=== PATIENT | female | born 1975 | race Caucasian/White ===

== ENCOUNTER 2020-04-25 13:22 | Outpatient (CLI) | payer MEDICAID, SELFPAY ==
[2020-04-25] MEDS: iohexol 300 mg/mL 100 mL Btl IV (13:45)
--- NOTE | 2020-04-25 14:30 | CT_ITS ---
WS: [id number] CT ABDOMEN PELVIS TECHNIQUE: Contrast-enhanced CT of the abdomen and pelvis with coronal and sagittal reformatted image s. CLINICAL INFORMATION: left ovarian COMPARISON: None. DLP: 269.[address] scans at [facility] use at least one of these dose optimization techniques: automat ed exposure control; mA and/or kV adjustment per patient size (includes targeted exams where dose is matched to clinical indication); or iterative reconstruction. FINDINGS:Heterogeneous physiologic uterine enhancement is normal for a patient this age. Peripheral e nhancing left adnexal lesion measuring 4.1 x 3.1 x 4.1 CM nonspecific but may represent hemorrhagic c yst. Recommend further evaluation with ultrasound. Small amount of adjacent fluid in the left adnexa. Small amount of free fluid in the cul-de-sac. Fluid in the endometrial canal. Normal liver. Normal portal vein and splenic vein. Lung bases are well aerated. Gallbladder is contra cted. Adrenal gland is normal. Normal renal parenchymal enhancement. No hydronephrosis. Normal GE veronika ction. Visualized pancreas is normal. Normal common bile duct. Normal caliber abdominal aorta. No abdominal or pelvic lymphadenopathy. No inguinal lymphadenopathy. Normal lumbar spine. CT/CT abdomen pelvis w con* [id number] IMPRESSION: 1. Peripheral enhancing left adnexal ovarian cystic lesion measuring 4.1 x 3.0 cm may represent hemorrhagic cyst. Recommend further evaluation with ultrasoun d. 2. Small amount of surrounding free fluid left adnexa and fluid in the cul-de- sac. 3. Normal physiologic uterine enhancement with fluid in the endometrial canal. 4. Normal liver and spleen. 5. Normal renal parenchymal enhancement. No hydronephrosis. 6. Normal caliber abdominal aorta. 7. No other significant findings.
== END 2020-04-25 13:23 | disposition home or self-care (01) ==
LOC: RAD 13:26
PROVIDERS: Visit Provider Nurse Practitioner Family
DX: N83.202 Unspecified ovarian cyst, left side (principal)
CPT/HCPCS: 74177

== ENCOUNTER → 2020-05-14 15:44 | Outpatient (BNVA) | payer MEDICAID, SELFPAY | PROVIDERS: Visit Provider Obstetrics & Gynecology | DX: Z12.4 Encounter for screening for malignant neoplasm of cervix; N83.8 Other noninflammatory disorders of ovary, fallopian tube and broad ligament | CPT/HCPCS: 88175 ==

== ENCOUNTER → 2020-05-21 11:05 | Outpatient (BNVA) | payer MEDICAID, SELFPAY | PROVIDERS: Visit Provider Obstetrics & Gynecology | DX: N83.8 Other noninflammatory disorders of ovary, fallopian tube and broad ligament (principal); R19.00 Intra-abdominal and pelvic swelling, mass and lump, unspecified site | CPT/HCPCS: 83001 ==

== ENCOUNTER 2020-11-19 09:17 | Emergency (ER) | payer MEDICAID, SELFPAY ==
[2020-11-19] VITALS (9 sets, daily range): BP systolic 94–132; BP diastolic 64–96; PULSE 72–93; RESP 14–28; TEMP 36.4; O2SAT 92–100; BMI 16.7
--- NOTE | 2020-11-19 09:23 | XR_ITS ---
WS: [id number] PORTABLE CHEST HISTORY: dyspnea/cough COMPARISON: None available. Single lead defibrillator to the RIGHT subclavian vein. Marked hyperinflation of the lungs. No mass or nodule. No pneumonia. No pleural effusion or pneumotho rax. Cardiac size: Normal. Mediastinum/Aorta: Normal mediastinum. No osseous abnormality seen. XR/XR chest 1V portable [id number] IMPRESSION: Marked hyperinflation otherwise negative.
--- NOTE | 2020-11-19 09:23 | CT_ITS ---
WS: [id number] CT ABDOMEN AND PELVIS WITH CONTRAST HISTORY: Abdominal pain with nausea. History of lymphoma. TECHNIQUE: Imaging performed of the abdomen and pelvis with IV contrast. Single phase imaging of the abdomen. Coronal and sagittal reformats are submitted. All CT scans at [facility] use at least one of these dose optimization techniques: automated exposure control; mA and/or kV adjustment per patient size (includes targeted exams where dose is matched to clinical indication); or iterativ e reconstruction. IV CONTRAST: Omnipaque 300; 95 mL IV. Oral contrast: No DLP: 756.22 mGy.cm COMPARISON: 04/25/2020 Lower thorax: Chronic emphysema. Heart size is normal. There is a defibrillator present causing some artifact through the anterior mediastinum. Small hiatal hernia. Liver/biliary system: Normal size with no intrahepatic dilatation. Gallbladder: Normal. No gallstones or wall thickening. No pericholecystic fluid. Pancreas: Small caliber pancreas. Common bile duct at the pancreatic head is normal size. There is a calcification in the pancreatic head which may be from prior episodes of pancreatitis. Spleen: Normal. Adrenal glands: Normal. Right kidney: Normal. Left kidney: Normal. Aorta: Normal. Lymphadenopathy: None. Free fluid: None. GI tract: No obstructive pattern. There is mild haziness involving the colon, greatest involving the ascending and descending colon. Very mild increased amount of edema within the wall. The appendix is only partially visualized and normal. No GI tract obstruction. Moderate fecal retention in the distal colon. Abdominal wall: Unremarkable abdominal wall. No hernia. Pelvis: Normal size slightly retroflexed uterus. Small bilateral ovarian cysts. No free fluid or aminta opathy in the pelvis. Previously described LEFT ovarian cyst is not longer present. Bones: Several lucencies are noted in the proximal LEFT femur which are present on the prior study wi th no progression. CT/CT abdomen pelvis w con* [id number] IMPRESSION: 1. No appendicitis. 2. Mild constipation. 3. No adenopathy. 4. Mild diffuse colitis. May be infectious. No ascites.
--- NOTE | 2020-11-19 09:35 | ED_ITS ---
HPI - Nausea/Vomiting/Diarrhea General: Chief complaint: Nausea/Vomiting/Diarrhea Stated complaint: n/v Time Seen by Provider: 11/19/20 09:17 History of Present Illness: HPI Narrative: 45-year-old female presents emergency room via EMS complaining of abdominal discomfort was persistent nausea and vomiting. Initially she told EMS that been going on for 3 to 4 days they had had contact with her yesterday evidently. Called back again today now she is telling us the ER its been going on for 4 hours. She admits to regular use of marijuana she denies use of any other medications. Clinically she has the appearance of being under the influence at this time. She cannot localize the pain she denies fever denies dysuria urgency or frequency. MD elicited complaint: nausea, vomiting and abdominal pain Onset (ago): day(s) (3-4) Associated nausea: Yes Associated abdominal pain: Yes Location of pain: Diffuse Pain consistency: constant Severity: severe Quality: cramping Exacerbating factors: none Relieving factors: none Associated symtoms: Reports anxiety and nausea; Denies altered mental status, bloating, change in vision, chest pain, cough, diaphoresis, decreased urine output, dizziness, dysuria, epistaxis, fatigue, fecal incontinence, fevers/chills, headache(s), anorexia, malaise, myalgias, nu mbness, palpitations, rash, short of breath, syncope, tenesmus, tinnitus or weakness Treatment prior to arrival: none Review of Systems Const: Denies: malaise or diaphoresis Eyes: Denies: change in vision ENMT: Denies: epistaxis Card: Denies: chest pain or syncope Resp: Denies: dyspnea, productive cough or non-productive cough GI: Reports: nausea; Denies: bloating or fecal incontinence : Denies: dysuria Skin/Breast: Denies: rash or pruritus Neuro: Denies: headache(s) or dizziness Psych: Reports: anxiety PFSH ED PFSH: Medical History (Updated 11/19/20 @ 16:00 by Harvey Wong DO) Cardiac defibrillator in place Cardiomyopathy due to cirrhosis of liver Chronic back pain History of ETOH abuse Hx of ovarian cyst Pelvic mass Surgical History Hx of section Hx of tubal ligation Family History Father , Killed beat to Family history of premature coronary artery disease Mother Diabetes Hypertension Stroke Thyroid disorder Brother Thyroid disorder Sister Thyroid disorder Denies family history of Colon cancer Ovarian cancer Clotting disorder Hyperlipidemia Breast cancer Anesthesia complication Bleeding disorder Uterine cancer Social History Smoking and tobacco status: light tobacco smoker cigarettes Alcohol intake: current Alcohol intake frequency: few times a month Alcohol type: hard liquor Female Reproductive History: Date of last menstrual period: 03/31/20 Para: 4 Spontaneous abortions: Yes Physical Exam Const: COMMON NORMALS: no acute distress EXAM LIMITATIONS: no altered mental status GENERAL APPEARANCE: cooperative and comfortable ORIENTATION/CONSCIOUSNESS: Yes awake, Yes oriented to person, Yes oriented to place and Yes oriented to time HENMT: COMMON NORMALS: normocephalic, atraumatic and hearing grossly normal bilaterally HEAD & SCALP: normocephalic and atraumatic Neck/C-Spine: COMMON NORMALS: no JVD Resp: COMMON NORMALS: normal respiratory effort, No retractions, No use of accessory muscles and clear to auscultation bilaterally AUSCULTATION: clear to auscultation bilaterally Cardio: COMMON NORMALS: no JVD, regular rate, regular rhythm and No murmurs present (Cardio) RATE: regular rate RHYTHM: regular rhythm GI: COMMON NORMALS: Soft to palpation and No hepatosplenomegaly present AUSCULTATION: Yes normoactive bowel sounds PALPATION: Yes Soft to palpation, No Tenderness to palpation present (GI), No Guarding due to palpation present (GI) and Yes No hepatosplenomegaly present Extremity: COMMON NORMALS: normal to inspection, capillary refill normal, no clubbing, cyanosis or edema, no calf tenderness and no pedal edema Neuro: SENSORIUM/ORIENTATION: Yes oriented to person, Yes oriented to place and Yes oriented to time Skin: COMMON NORMALS: no rashes or lesions noted GENERAL SKIN EXAM: no rashes or lesions noted Course Vital Signs: Vital signs: Vital Signs Temperature 97.6 F 11/19/20 09:19 Pulse Rate 74 11/19/20 16:15 Respiratory Rate 19 H 11/19/20 16:15 Blood Pressure 104/65 11/19/20 16:15 Pulse Oximetry 96 11/19/20 16:15 MDM - Nausea/Vomiting/Diarrhea MDM Narrative: Medical decision making narrative: Prolonged ER course for IV fluids and antiemetics. Patient has improved we will go ahead and discharge her home encourage her to avoid marijuana products. Patient given Reglan to use as needed at home Lab Data: Labs: Lab Results 11/19/20 11/19/20 11/19/20 Range/Units 10:05 10:05 10:05 WBC 7.9 (4.0-10.0) 10^3/ uL RBC 3.77 L (4.1-5.3) 10^6/u L Hgb 11.4 L (11.5-15.3) g/dL Hct 34.0 L (37.0-47.0) % MCV 90.2 (81-99) fL MCH 30.2 (28.0-34.0) pg MCHC 33.5 (30.0-36.0) g/dL RDW 14.5 (12.1-15.1) % Plt Count 278 (130-400) 10^3/c mm MPV 9.7 (7.4-10.4) fL Neut % (Auto) 80.2 % Lymph % (Auto) 15.4 % Pershing % (Auto) 3.3 % Eos % (Auto) 0.1 % Baso % (Auto) 0.6 % Neut # (Auto) 6.35 (1.8-7.7) 10^3/u L Lymph # (Auto) 1.2 (0.8-4.8) 10^3/u L Pershing # (Auto) 0.3 (0.2-0.9) 10^3/u L Eos # (Auto) 0.0 (0.0-0.8) 10^3/u L Baso # (Auto) 0.1 (0.0-0.1) 10^3/u L Nucleated RBC % (a uto) 0 % Nucleated RBCs # 0.0 /100WBC Specimen Type Sample Site ABG pH (7.35-7.45) ABG pCO2 (35-45) mmHg ABG pO2 (80.0-100.0) mmH g ABG HCO3 (22-26) mmol/L ABG O2 Saturation ABG Base Excess (-2.0-2.0) mmol/ L Ryley Test A-a O2 Gradient (5-10) mmHg Hematocrit (37-47) % Hgb O2 Saturation (95-100) % Carboxyhemoglobin (0.4-20.1) %THgb Methemoglobin (0.4-1.5) % Total Hemoglobin (12-16) g/dL Ionized Calcium (1.1-1.4) mmol/L O2 Delivery Device FiO2 % Device Repair Technician ID Sodium 137 (136-145) mmol/L Potassium 3.3 L (3.5-5.1) mmol/L Chloride 100 (98-107) mmol/L Carbon Dioxide 22 (22-29) mmol/L Anion Gap 18.3 (5-19) BUN 10 (6-20) mg/dL Creatinine 0.5 (0.5-0.9) mg/dL GFR Calculation 134.7 H (90-130) mL/min Glucose 109 (65-115) mg/dL Calculated Osmolal ity 284 L (285-295) mOsm/k g Lactic Acid 4.0 H (0.5-2.2) mmol/L Lactic Acid (Sepsi s) (0.5-2.2) mmol/L Calcium 8.6 (8.5-10.5) mg/dL Total Bilirubin 0.2 (0.15-1.2) mg/dL AST 19 (0-32) U/L ALT 13 (0-33) U/L Alkaline Phosphata se 50 (35-105) IU/L Creatine Kinase 77 (26-192) U/L Total Protein 7.3 (6.6-8.7) g/dL Albumin 4.4 (3.5-5.2) g/dL Globulin 2.9 (1.3-4.6) g/dL Lipase 7 L (13-60) U/L Urine Color (Yellow) Urine Appearance (CLEAR) Urine pH (5-7) Ur Specific Gravit y (1.005-1.030) Urine Protein (Negative) Urine Glucose (UA) (Normal) Urine Ketones (Negative) Urine Blood (Negative) Urine Nitrate (Negative) Urine Bilirubin (Negative) Prot Sulfosalicyli c Acd (Negative) Urine Urobilinogen (Negative) mg/dL Ur Leukocyte Breonna ase (Negative) Urine RBC (0-2) /hpf Urine WBC (0-5) /hpf Ur Squamous Epith Cells (0-5) /hpf Amorphous Sediment Urine Bacteria (NONE) /hpf 11/19/20 11/19/20 11/19/20 Range/Units 10:05 10:07 13:45 WBC (4.0-10.0) 10^3/ uL RBC (4.1-5.3) 10^6/u L Hgb (11.5-15.3) g/dL Hct (37.0-47.0) % MCV (81-99) fL MCH (28.0-34.0) pg MCHC (30.0-36.0) g/dL RDW (12.1-15.1) % Plt Count (130-400) 10^3/c mm MPV (7.4-10.4) fL Neut % (Auto) % Lymph % (Auto) % Pershing % (Auto) % Eos % (Auto) % Baso % (Auto) % Neut # (Auto) (1.8-7.7) 10^3/u L Lymph # (Auto) (0.8-4.8) 10^3/u L Pershing # (Auto) (0.2-0.9) 10^3/u L Eos # (Auto) (0.0-0.8) 10^3/u L Baso # (Auto) (0.0-0.1) 10^3/u L Nucleated RBC % (a uto) % Nucleated RBCs # /100WBC Specimen Type Arterial Sample Site Brachial, right ABG pH 7.36 (7.35-7.45) ABG pCO2 39.2 (35-45) mmHg ABG pO2 63.5 L (80.0-100.0) mmH g ABG HCO3 22.3 (22-26) mmol/L ABG O2 Saturation 89.9 ABG Base Excess -2.8 L (-2.0-2.0) mmol/ L Ryley Test Pos A-a O2 Gradient 5.0 (5-10) mmHg Hematocrit 38.0 (37-47) % Hgb O2 Saturation 87.4 L (95-100) % Carboxyhemoglobin 1.9 (0.4-20.1) %THgb Methemoglobin 0.8 (0.4-1.5) % Total Hemoglobin 12.4 (12-16) g/dL Ionized Calcium 1.2 (1.1-1.4) mmol/L O2 Delivery Device Room air FiO2 21.0 % Device Repair Technician ID [place] Sodium 143.0 (136-145) mmol/L Potassium 3.0 L (3.5-5.1) mmol/L Chloride (98-107) mmol/L Carbon Dioxide (22-29) mmol/L Anion Gap (5-19) BUN (6-20) mg/dL Creatinine (0.5-0.9) mg/dL GFR Calculation (90-130) mL/min Glucose 101.0 (65-115) mg/dL Calculated Osmolal ity (285-295) mOsm/k g Lactic Acid (0.5-2.2) mmol/L Lactic Acid (Sepsi s) 2.9 H (0.5-2.2) mmol/L Calcium (8.5-10.5) mg/dL Total Bilirubin (0.15-1.2) mg/dL AST (0-32) U/L ALT (0-33) U/L Alkaline Phosphata se (35-105) IU/L Creatine Kinase (26-192) U/L Total Protein (6.6-8.7) g/dL Albumin (3.5-5.2) g/dL Globulin (1.3-4.6) g/dL Lipase (13-60) U/L Urine Color Yellow (Yellow) Urine Appearance Clear (CLEAR) Urine pH 8 H (5-7) Ur Specific Gravit y 1.010 (1.005-1.030) Urine Protein 1+ H (Negative) Urine Glucose (UA) Norm (Normal) Urine Ketones 1+ H (Negative) Urine Blood Neg (Negative) Urine Nitrate Negative (Negative) Urine Bilirubin Neg (Negative) Prot Sulfosalicyli c Acd Negative (Negative) Urine Urobilinogen 1 H (Negative) mg/dL Ur Leukocyte Breonna ase Negative (Negative) Urine RBC None (0-2) /hpf Urine WBC Rare (0-5) /hpf Ur Squamous Epith Cells 0-4 H (0-5) /hpf Amorphous Sediment Not Reportable Urine Bacteria 1+ H (NONE) /hpf Discharge Plan Discharge Patient Disposition: Home Clinical Impression: Nausea & vomiting, Cannabinoid hyperemesis syndrome Condition: Stable Prescriptions: New Reglan 10 mg tablet 10 mg PO Q6H PRN (Reason: nausea and vomiting) Qty: 20 RF: 0 No Action hydroxyzine HCl 50 mg tablet 50 mg PO TID RF: 0 Flovent HFA 44 mcg/actuation HFA aerosol inhaler 2 puff INHALATION BID RF: 0 Ventolin HFA 90 mcg/actuation HFA aerosol inhaler 2 puff INHALATION Q4H PRN (Reason: Shortness Of Breath) RF: 0 Discharge Orders: Discharge ED (Routine); Ordered 11/19/20 Ordered By: Harvey Wong Discharge Diet: Clear Liquid Discharge Activity: Increase activity as tolerated Patient Instructions: Opioid Safety Activity Restrictions/Additional Instructions: Do not use marijuana. Clear liquid diet for 24 to 48 hours and advance as tolerated. Coding Level of Care Code ED Fundraising Coordinator for Andre Bravo Exam Problem Focused
[2020-11-19] MEDS: iohexol 300 mg/mL 100 mL Btl IV (09:41)
[2020-11-19] MEDS: metoclopramide 5 mg/mL SDV 2 mL 10 MG IVP (09:51)
[2020-11-19] MEDS: sodium chloride 0.9% 1,000 ML 999 ML IV ×2 (09:52→11:09)
[2020-11-19] MEDS: haloperidol inj 5 mg/mL INJ 1 mL IVP (09:52)
[2020-11-19] MEDS: LORazepam 2 mg/mL INJ 1 mL IVP (10:01)
[2020-11-19 10:16] LABS: Basophils # 0.1 10^3/uL (0.0-0.1); Basophils % 0.6 %; Eosinophils % 0.1 %; Hemoglobin 11.4 g/dL (11.5-15.3); Lymphocytes # 1.2 10^3/uL (0.8-4.8); Lymphocytes % 15.4 %; Mean Corpuscular HGB Conc 33.5 g/dL (30.0-36.0); Mean Corpuscular Hemoglobin 30.2 pg (28.0-34.0); Mean Corpuscular Volume 90.2 fL (81-99); Mean Platelet Volume 9.7 fL (7.4-10.4); Monocytes # 0.3 10^3/uL (0.2-0.9); Monocytes % 3.3 %; Neutrophils # 6.35 10^3/uL (1.8-7.7); Neutrophils % 80.2 %; Nucleated Red Blood Cells % 0 %; Platelet Count 278 10^3/cmm (130-400); Red Blood Count 3.77 10^6/uL (4.1-5.3); Red Cell Distribution Width 14.5 % (12.1-15.1); White Blood Count 7.9 10^3/uL (4.0-10.0)
[2020-11-19 10:23] LABS: ABG PCO2 39.2 mmHg (35-45); ABG PH Result 7.36 (7.35-7.45); Base Excess ABG -2.8 mmol/L (-2.0-2.0); Blood Gas Allen Test Pos; Blood Gas Operator Identificat MONRO; Blood Gas Sample Site Brachial, right; Blood Gas Sample Type Arterial; Carboxyhemoglobin 1.9 %THgb (0.4-20.1); HCO3 ABG 22.3 mmol/L (22-26); HGB O2 Sat 87.4 % (95-100); Ionized Calcium Level - ABG 1.2 mmol/L (1.1-1.4); Methemoglobin 0.8 % (0.4-1.5); Oxygen Device ROOM AIR; Oxygen Saturation ABG 89.9; PO2 ABG 63.5 mmHg (80.0-100.0); Total Hemoglobin 12.4 g/dL (12-16)
[2020-11-19 10:29] LABS: Add Urine Microscopic? YES; Bilirubin Urine Neg (Negative); Blood Urine Neg (Negative); Glucose Urine UA Norm (Normal); Ketones Urine 1+ (Negative); Leukocyte Esterase Urine Negative (Negative); Nitrate Urine Negative (Negative); Protein Urine 1+ (Negative); Sulfosalicylic Acid Urine Negative (Negative); Urine Appearance Clear (CLEAR); Urine Color Yellow (Yellow); Urobilinogen Urine 1 mg/dL (Negative); pH Urine 8 (5-7)
[2020-11-19 10:30] LABS: Add Urine Culture? No; Bacteria Urine 1+ /hpf; Squamous Epithelial Cell Urine 0-4 /hpf (0-5); WBC Urine RARE /hpf (0-5)
[2020-11-19 10:37] LABS: Alanine Aminotransferase 13 U/L (0-33); Albumin Level 4.4 g/dL (3.5-5.2); Alkaline Phosphatase 50 IU/L (35-105); Anion Gap 18.3 (5-19); Aspartate Amino Transferase 19 U/L (0-32); Blood Urea Nitrogen 10 mg/dL (6-20); Calcium 8.6 mg/dL (8.5-10.5); Carbon Dioxide 22 mmol/L (22-29); Chloride 100 mmol/L (98-107); Creatine Phosphokinase 77 U/L (26-192); Globulin 2.9 g/dL (1.3-4.6); Glomerular Filtration Rate 134.7 mL/min (90-130); Glucose 109 mg/dL (65-115); Lipase 7 U/L (13-60); Osmolality Calculated 284 mOsm/kg (285-295); Potassium 3.3 mmol/L (3.5-5.1); Sodium 137 mmol/L (136-145); Total Bilirubin 0.2 mg/dL (0.15-1.2); Total Protein 7.3 g/dL (6.6-8.7)
[2020-11-19] MEDS: lidocaine 1% 5 ML in potassium chloride premix 100 ML 25 ML IV (11:31)
[2020-11-19 12:00] LABS: Reflex Lactate Order REFLEX LACTIC ORDERD
[2020-11-19] MEDS: capsaicin 0.025% cream 60 gm 1 APPLIC TOPICAL (13:55)
[2020-11-19 14:15] LABS: Lactic Acid level (Lactate) 2.9 mmol/L (0.5-2.2)
== END 2020-11-19 16:16 | disposition home or self-care (01) ==
PROVIDERS: Emergency Provider Family Medicine
DX: R11.2 Nausea with vomiting, unspecified (principal); F12.90 Cannabis use, unspecified, uncomplicated; Z95.810 Presence of automatic (implantable) cardiac defibrillator; F17.210 Nicotine dependence, cigarettes, uncomplicated
CPT/HCPCS: 36415; 36600; 71045; 74177; 80051; 80053; 81001; 82330; 82550; 82805; 83605; 83690; 85025; 87040; 96365; 96366; 96375; 99284; J1630; J2060; J2765; J3480; J7030; Q9967

== ENCOUNTER → 2021-05-01 14:35 | Outpatient (BNVA) | payer MEDICAID, SELFPAY | PROVIDERS: Visit Provider Nurse Practitioner Family | DX: R63.4 Abnormal weight loss (principal); R59.1 Generalized enlarged lymph nodes; J45.909 Unspecified asthma, uncomplicated; S69.90XA Unspecified injury of unspecified wrist, hand and finger(s), initial encounter; X58.XXXA Exposure to other specified factors, initial encounter | CPT/HCPCS: 80053; 84443; 85025 ==